=== PATIENT | male | born 1995 | race Caucasian/White ===

== ENCOUNTER 2025-07-17 13:56 | Emergency (ER) | payer MEDICARE ==
[2025-07-17] MEDS ORDERED: HYDROcodone/Acetaminophen 10/325 mg Tablet ONE (14:31)
[2025-07-17 16:15] LABS: #Basophils 0.05 10x3/uL (0.0-0.2); #Eosinophils 0.16 10x3/uL (0.0-0.5); #Monocytes 0.49 10x3/uL (0.0-1.1); #Neutrophils 3.25 10x3/uL (1.5-8.4); %Basophils 0.8 % (0.0-2.0); %Eosinophils 2.6 % (0.0-6.0); %Lymphocytes 34.9 % (18.0-47.0); %Monocytes 8.1 % (0.0-10.0); %Neutrophils 53.4 % (40.0-75.0); Hematocrit 42.0 % (38.8-50.0); Hemoglobin 13.0 g/dL (13.5-17.5); Mean Corpuscular Hemoglobin 25.7 pg (27.0-33.0); Mean Corpuscular Volume 83.0 fL (81.2-95.1); Platelet Count 255 10x3/uL (150-450); Red Blood Cell (RBC) Count 5.06 10x6/uL (4.32-5.72); White Blood Cell (WBC) Count 6.08 10x3/uL (3.5-10.5)
[2025-07-17 16:23] LABS: INR-International Normal Ratio 1.0; PTT 24.6 sec (22.0-33.0); Prothrombin Time 10.5 sec (9.5-12.1)
[2025-07-17 16:26] LABS: ALT (SGPT) 19 U/L (Less than 45); AST (SGOT) 20 U/L (11-34); Albumin 3.7 g/dL (3.1-4.5); Alkaline Phosphatase 60 U/L (40-110); Anion Gap 10 mmol/L (10-20); BUN (Urea Nitrogen) 11 mg/dL (8.9-20.6); Bilirubin, Total 0.2 mg/dL (0.3-1.2); Calc. Creatinine Clearance 0 mL/min (70-130); Calcium 8.4 mg/dL (7.8-10.44); Carbon Dioxide 29 mmol/L (22-29); Chloride 106 mmol/L (98-107); Globulin 2.7 g/dL (2.4-3.5); Glucose 95 mg/dL (70-105); Potassium 4.2 mmol/L (3.5-5.1); Sodium 141 mmol/L (136-145)
[2025-07-17 16:40] LABS: Troponin I Less than 0.010 ng/mL (< 0.028)
[2025-07-17] MEDS ORDERED: Naproxen 500 MG TAB ONE (16:44)
== END 2025-07-17 17:30 | disposition home or self-care (01) ==
LOC: CSHERS 13:56
DX: I82.611 Acute embolism and thrombosis of superficial veins of right upper extremity (principal); F17.290 Nicotine dependence, other tobacco product, uncomplicated
CPT/HCPCS: 71045; 80053; 84484; 85025; 85610; 85730; 93005; 93010